=== PATIENT | male | born 1945 | race Caucasian/White ===

== ENCOUNTER → 2017-08-19 09:49 | Outpatient (CLI) | payer MEDICARE, OTHER, SELFPAY ==
[2017-08-19 11:08] LABS: PSA,Total- Diagnostic < 0.01 ng/mL (0.0-4.0)
== END ==
PROVIDERS: Family Provider Family Medicine; PCP Family Medicine; Visit Provider Urology
DX: C61 Malignant neoplasm of prostate (principal)
CPT/HCPCS: 36415; 84153

== ENCOUNTER → 2018-02-23 09:28 | Outpatient (CLI) | payer MEDICARE, OTHER, SELFPAY ==
[2018-02-23 10:21] LABS: PSA,Total- Diagnostic < 0.01 ng/mL (0.0-4.0)
== END ==
PROVIDERS: Family Provider Family Medicine; PCP Family Medicine; Referring Provider Urology; Visit Provider Urology
DX: C61 Malignant neoplasm of prostate (principal)
CPT/HCPCS: 36415; 84153

== ENCOUNTER → 2018-08-27 08:25 | Outpatient (CLI) | payer MEDICARE, OTHER, SELFPAY ==
[2016-09-25 14:37] VITALS: BMI 28.5
[2018-08-27 09:45] LABS: PSA,Total- Diagnostic < 0.01 ng/mL (0.0-4.0)
== END ==
PROVIDERS: Family Provider Family Medicine; PCP Family Medicine; Referring Provider Urology; Visit Provider Urology
DX: C61 Malignant neoplasm of prostate (principal)
CPT/HCPCS: 36415; 84153

== ENCOUNTER 2018-10-29 05:58 | Emergency (ER) | payer MEDICARE, OTHER, SELFPAY ==
[2018-10-29 05:59] VITALS: BP 163/88; PULSE 96; RESP 18; TEMP 36.6; O2SAT 97; BMI 28.5
--- NOTE | 2018-10-29 05:59 | CT_ITS ---
STUDY: CT ABDOMEN AND PELVIS WITHOUT CONTRAST REASON FOR EXAM: Male, 73 years old. Low back and bilateral flank pain. RADIATION DOSAGE (If Supplied By Facility): CTDIvol = ( 11.01 ) mGy, DLP = ( 503.47 ) mGycm TECHNIQUE: Transaxial images were obtained from the dome of the diaphragm to the symphysis pubis without oral contrast, and without intravenous contrast. Sagittal and coronal images were reconstructed. Individualized dose optimization techniques were used for this CT. COMPARISON: CT scan abdomen and pelvis 08/05/2016. FINDINGS: As seen on axial image 15, there is a 3.6 mm noncalcified left lower lobe lung nodule, which is stable in size compared to the 2017 exam. No further evaluation should be necessary. The visualized portions of the heart are within normal limits. There are small liver cysts. There are small calcified gallstones. Normal spleen. Normal pancreas. Normal bilateral adrenal glands. Normal right kidney. Normal left kidney. There is chronic bilateral perinephric fat infiltration, which is slightly more prominent than it was on the 2017 exam.. Finding is nonspecific and might represent active inflammation. There is a small to moderate hiatal hernia. Normal small intestine. Normal colon. The appendix is visualized on axial images 94-101 and it appears normal.. There is diffuse atherosclerotic calcification of the abdominal aorta, without a demonstrated aneurysm. Normal inferior vena cava. There is no demonstrated retroperitoneal lymphadenopathy. Normal urinary bladder. There is evidence for prostatectomy, which is occurred subsequent to the previous exam. There is a small umbilical hernia containing fat, but no bowel. There are multilevel degenerative changes of the visualized lumbar spine. CT/Abdomen/Pelvis without Cont IMPRESSION: Status post prostatectomy. Chronic bilateral perinephric fat infiltration is slightly more prominent than it was on previous exam. Finding is nonspecific but may represent an active infectious or inflammatory process. .No demonstrated urinary calculus or hydronephrosis. No demonstrated perinephric fluid collection. Gallstones. Hiatal hernia. Atherosclerosis. No evidence for appendicitis or diverticulitis. Electronically Signed: Tee Vance MD at 6:44 EDT , Service support ,
--- NOTE | 2018-10-29 06:01 | ED.DCSUM_ITS ---
- ER Visit Summary Date of Service: 10/29/18 Chief Complaint: Bilateral flank pain History of Present Illness: The patient is a 73 M who has bilateral flank pain. Started about 5 hours ago. Describes intermittent pains that goes from his flanks and wraps around to the front part of his abdomen. They are sharp in nature. He has had nausea without vomiting, diarrhea or constipation. He denies any dysuria or hematuria. He states he did lift some heavy water yesterday but is not sure if he injured himself doing this. Denies any pain radiating down his legs. He denies fevers. Physical Examination: Vital signs reviewed. HEENT exam unremarkable. Heart is regular rate and rhythm without murmurs. Lungs are clear to auscultation. Abdomen is soft and nontender. Extremities reveal no edema. Skin exam normal. Neurologic exam normal. Test Results: Laboratory studies show a white blood cell count of 12.8, chloride 109. BUN 22, creatinine 2.45. Last creatinine we have was in 2017 it was 1.1. CAT scan of the abdomen and pelvis shows a prostatectomy with chronic bilateral perinephric fat infiltration more prominent than previous. There are gallstones with no evidence of cholecystitis. Emergency Department Course and Treatment: Patient was hydrated with normal saline. His creatinine has more than doubled since the last time it was tested. He also has this chronic bilateral perinephric fat stranding which is more prominent. I feel due to this he should be admitted for further renal studies. I will discuss with the hospitalist for admission. Treatment Plan: [] Disposition: Admit Impression: Acute kidney injury This note was generated with [employer]ible dictation software. It may contain incorrect words, spelling, and punctuation that were not noted in review of the chart prior to signing ED Disposition - Plan for ED Patient: Referrals: Prashant Bettencourt DO [Primary Care Provider] -
[2018-10-29 06:10] LABS: Mucous, Urine 0 SEEN /hpf (<or=2+); Red Blood Cells-Urine 0 SEEN /hpf (0-5); Squamous Epithelial Cells - UA 0 SEEN /hpf (0-5); White Blood Cells 0 SEEN /hpf (0-5)
[2018-10-29 06:23] LABS: Color, Urine Yellow (Yellow); Glucose, Dipstick Normal (Normal); Ketone-Dipstick Negative (Negative); Leukocyte Esterase-Dipstick Negative /ul (Negative); Nitrite-Dipstick Negative (Negative); Occult Blood-Urine Negative /ul (Negative); Protein-Dipstick Negative (Negative); Specific Gravity, Urine 1.005 (1.002-1.030); Urine Bilirubin Dipstick Negative (Negative); Urine Clarity Clear (Clear); Urine Urobilinogen Normal (Normal); Urine pH 6.5 (5.0 - 8.0)
[2018-10-29 06:25] LABS: Absolute Lymphocyte Count 1.04 X10^3/ul (0.83-4.51); Absolute Neutrophil Count 10.3 X10^3/uL (2.0-7.7); Basophil# 0.02 X10^3/uL; Basophil% 0.2 % (0-1); Eosinophil# 0.18 X10^3/uL; Eosinophils% 1.4 % (0-5); Hematocrit 39.2 % (40-54); Hemoglobin 13.1 g/dl (13.0-16.5); Lymphocyte # 1.04 X10^3/ul (4.0); Lymphocyte % 8.1 % (19-41); Mean Corp Hgb Conc 33.4 g/gl (32-36); Mean Corpuscular Hgb 29.8 pg (27.0-32.0); Mean Corpuscular Volume 89.3 fL (80-94); Mean Platelet Vol. 9.1 fl (6.2-12.0); Monocyte# 1.24 X10^3/uL; Monocyte% 9.7 % (0-10); Neutrophil # 10.27 X10^3/uL (2.7-7.7); Neutrophil % 80.2 % (47-70); Platelet Count 286 K/mm3 (150-450); RBC Distribution Width CV 16.6 % (11.6-14.6); Red Blood Count 4.39 M/mm3 (4.6-6.2); White Blood Count 12.8 K/mm3 (4.4-11.0)
[2018-10-29 06:27] LABS: POSITIVE COUNT NO; POSITIVE DIFFERENTIAL NO; POSITIVE MORPHOLOGY NO
[2018-10-29 06:29] LABS: BUN 22 mg/dL (7-18); Chloride 109 mmol/L (98-107); Creatinine, Serum 2.45 mg/dL (0.70-1.30); EST Glomerular Filtration Rate 28 mL/min (>60); Est Glom Filt Rate - Afr Amer 34 mL/min (>60); Estimated Creatinine Clearance 25.86 ml/min; Glucose 116 mg/dL (74-106); Potassium 4.2 mmol/L (3.5-5.1); Sodium Level 141 mmol/L (136-145)
[2018-10-29 06:30] LABS: Bacteria RARE /hpf (None Seen)
[2018-10-29 06:30] LABS: Anion Gap 9 (5-15)
[2018-10-29] MEDS: 0.9% Normal Saline 1,000 ML 999 ML IV (06:45)
--- NOTE | 2018-10-29 07:53 | ED.DEP ---
ED Disposition - Plan for ED Patient: Instructions: Kidney Problems Referrals: Prashant Bettencourt DO [Primary Care Provider] -
[2018-10-29 08:00] VITALS: BP 157/76; PULSE 80; RESP 16; O2SAT 98
--- NOTE | 2018-10-29 08:18 | CON.PCM_ITS ---
Problem List (1) Back pain Status: Acute Qualifiers: Back pain location: low back pain Chronicity: acute Back pain laterality: bilateral Sciatica presence: without sciatica Qualified Code(s): M54.5 - Low back pain Reason for Consult Date of Consultation: 10/29/18 Reason for Consultation: back pain History of Present Illness: The patient is a 73 year old M who awoke this morning with back pain. Patient stated his low back pain and also had some abdominal pain. Never had pain like this and presented to the emergency room for evaluation. Patient had a creatinine of 2.4, back 2017 it was normal at that time. Patient had a CAT scan that showed some perinephric stranding. The report mentioned that there was some perinephric stranding noted on a CAT scan back in 2017 though was not actually in the body of the reports at that time. Patient denies any dysuria, urinary frequency, difficulty with urination. The hospitalist service was contacted for evaluate patient for possible admission for the abnormal kidney function. [] Past Medical History Medical History: Medical History (Last Updated 10/29/18 @ 08:21 by Jamshid Khan DO) Prostate cancer C61 HTN (hypertension) I10 Allergies No Known Allergies Allergy (Verified 10/29/18 05:58) Home Medications: Ambulatory Orders Medication Instructions Recorded Amlodipine [Norvasc] 10 mg PO DAILY 09/19/16 Aspirin E.C. [Ecotrin] 81 mg PO DAILY@0800 09/19/16 Atorvastatin Calcium [Lipitor] 40 mg PO QHS 09/19/16 Losartan/Hydrochlorothiazide 10/29/18 [Losartan-Hctz 100-12.5 mg Tab] Surgical History: Surgical History (Last Updated 10/29/18 @ 08:21 by Jamshid Khan DO) H/O prostatectomy Z90.79 Lives: Spouse/ Significant Other Smoking Status: Never smoker Tobacco Use: Non-smoker Alcohol: None Drugs: None - *Family History Paternal History Items: - - no prostate CA Review of Systems Constitutional: Denies: Chills, Fever, Weight Change Eyes: Denies: Blurred vision, Eyelid Inflammation HEENT: Denies: Head Aches, Sinus Congestion, Sinus Drainage Cardiovascular: Denies: Chest Pain, Palpitations Respiratory: Denies: Cough, Shortness of breath at rest, Sputum production Gastrointestinal: Denies: Abdominal Pain, Nausea, Vomiting Genitourinary: Denies: Dysuria Musculoskeletal: Denies: Joint Pain, Joint Tenderness Skin: Denies: Rash, Wounds Neurological: Denies: Numbness, Tingling, Focal weakness Psychiatric: Denies: Anxiety, Depression Hematologic/ Lymphatic: Denies: Easy Bruising, Easy Bleeding, Hx of blood clot Comment: A 10 point review of systems were negative except as mentioned in the history of present illness and the other review of systems. - Physical Exam General: Cooperative, No apparent distress HEENT: Atraumatic, Normocephalic Oral: Moist Mucosa, No Gingival or Mucosal Lesions/ Ulcerations Neck: No Nodes, Thyroid Normal Size and Texture Lungs: Clear to auscultation, Normal air movement, No rhonchi, No wheeze, No rales Cardiovascular: Regular rate, Regular Rhythm, Normal S1, Normal S2, No murmurs Abdomen: Bowel Sounds Present, Soft, Non Tender, Non-Distended, No Hepato- splenomegaly, - - No CVA tenderness Extremities: No edema, No Calf Tenderness Skin: No rashes, No breakdown Musculoskeletal: No Tenderness to Palpation of Joints or Extremities, No Muscle Wasting, - - No reproducible lower lumbar paraspinal tenderness Psych/Mental Status: Normal Affect, Appropriate Vital Signs Temp Pulse Resp BP Pulse Ox 36.6 C 80 16 157/76 H 98 10/29/18 05:59 10/29/18 08:00 10/29/18 08:00 10/29/18 08:00 10/29/18 08:00 Oxygen Delivery Method Room Air Weight: 82.7 kg Body Mass Index (BMI) 28.5 Laboratory Tests Past 24 Hrs 10/29/18 10/29/18 10/29/18 06:05 06:10 06:10 WBC 12.8 H RBC 4.39 L Hgb 13.1 Hct 39.2 L MCV 89.3 MCH 29.8 MCHC 33.4 RDW 16.6 H RDW Differential 54.0 H Plt Count 286 MPV 9.1 Immature Gran % (Auto) 0.400 Neut % (Auto) 80.2 H Lymph % (Auto) 8.1 L Owsley % (Auto) 9.7 Eos % (Auto) 1.4 Baso % (Auto) 0.2 Absolute Neuts (auto) 10.3 H Absolute Lymphs (auto) 1.04 Total Counted Not Reportable Sodium 141 Potassium 4.2 Chloride 109 H Carbon Dioxide 23.0 Anion Gap 9 BUN 22 H Creatinine 2.45 H Estim Creat Clear Calc 25.86 Est GFR (MDRD) Af Amer 34 L Est GFR (MDRD) Non-Af 28 L BUN/Creatinine Ratio 9.0 L Glucose 116 H Calcium 9.0 Urine Color Yellow Urine Clarity Clear Urine pH 6.5 Ur Specific Bullock 1.005 Urine Protein Negative Urine Glucose (UA) Normal Urine Ketones Negative Urine Occult Blood Negative Urine Nitrite Negative Urine Bilirubin Negative Urine Urobilinogen Normal Ur Leukocyte Esterase Negative Urine RBC 0 SEEN Urine WBC 0 SEEN Ur Squamous Epith Cells 0 SEEN Urine Bacteria RARE Urine Mucus 0 SEEN Assessment/Plan All Active Problems Back pain (Acute) 1. Chronic kidney disease stage IV * Cannot qualify this is acute kidney injury as there is no recent kidney function from 2017 * I have advised the patient to discontinue the lisinopril/HCTZ * Follow-up with his primary care physician and have a repeat lab work done as outpatient * If creatinine still remains to be elevated patient would require being established with a manager fitness. I did inform the patient and his that there is no urgency for renal replacement therapy at this time * And to get the patient the option to stay in the hospital receive IV fluids and have his lab work checked in the morning, but I stated that there would be observation status and that he would likely be stuck with a higher co-pay for this auscultation. I did inform him that when his medications drinking fluid would certainly be the equivalent of doing that at home. 2. Hypertension * Patient told to continue with his amlodipine but to hold his lisinopril/HCTZ * Advised patient check his blood pressure at home at least once daily and to be at rest for 5 minutes prior to checking his blood pressure 3. Perinephric stranding * Clinically, I do not feel the patient has pyelonephritis as he has no constitutional symptoms other than the back pain is unclear if the back pain is really even attributable to that. Additionally, his urinalysis was completely normal * This may be a chronic process but am not clear what the process would be 4. History of pulmonary hypertension * Noted on an echocardiogram that he had performed in 2017. * Unclear etiology but if not done so previously, consider polysomnogram to evaluate for obstructive sleep apnea Code Visit Office Visits / Consults: [id number] OP Consult L4
== END 2018-10-29 08:01 | disposition home or self-care (01) ==
PROVIDERS: Emergency Provider Emergency Medicine; Family Provider Family Medicine; PCP Family Medicine
DX: N17.9 Acute kidney failure, unspecified (principal); I12.9 Hypertensive chronic kidney disease with stage 1 through stage 4 chronic kidney disease, or unspecified chronic kidney disease; E11.22 Type 2 diabetes mellitus with diabetic chronic kidney disease; N18.4 Chronic kidney disease, stage 4 (severe); E78.00 Pure hypercholesterolemia, unspecified; Z79.899 Other long term (current) drug therapy
CPT/HCPCS: 74176; 80048; 81001; 85025; 96360; 99284; J7030; A4216

== ENCOUNTER → 2019-02-25 | Outpatient (CLI) | payer MEDICARE, OTHER, SELFPAY ==
[2019-02-25 12:03] LABS: PSA,Total- Diagnostic < 0.01 ng/mL (0.0-4.0)
== END | disposition home or self-care (01) ==
PROVIDERS: Referring Provider Urology; Visit Provider Urology
DX: C61 Malignant neoplasm of prostate (principal)
CPT/HCPCS: 36415; 84153

== ENCOUNTER → 2019-08-25 | Outpatient (CLI) | payer MEDICARE, OTHER, SELFPAY ==
[2019-08-25 09:29] LABS: PSA,Total- Diagnostic < 0.01 ng/mL (0.0-4.0)
== END | disposition home or self-care (01) ==
PROVIDERS: Referring Provider Urology; Visit Provider Urology
DX: C61 Malignant neoplasm of prostate (principal); R97.20 Elevated prostate specific antigen [PSA]
CPT/HCPCS: 36415; 84153

== ENCOUNTER → 2020-02-24 08:56 | Outpatient (CLI) | payer MEDICARE, OTHER, SELFPAY ==
[2020-02-24 10:08] LABS: PSA,Total- Diagnostic < 0.01 ng/mL (0.0-4.0)
== END ==
PROVIDERS: PCP Nurse Practitioner Primary Care; Referring Provider Urology; Visit Provider Urology
DX: C61 Malignant neoplasm of prostate (principal)
CPT/HCPCS: 36415; 84153

== ENCOUNTER 2020-06-19 17:45 | Outpatient (RCR) | payer MEDICARE, OTHER, SELFPAY | END 2020-06-19 23:59 | LOC: IMMUN 17:45 | PROVIDERS: Visit Provider Family Medicine | DX: Z23 Encounter for immunization (principal) | CPT/HCPCS: 0011A; 0012A ==

== ENCOUNTER → 2020-08-24 08:52 | Outpatient (CLI) | payer MEDICARE, OTHER, SELFPAY ==
[2020-08-24 10:48] LABS: PSA,Total- Diagnostic < 0.01 ng/mL (0.0-4.0)
== END ==
PROVIDERS: PCP Student in an Organized Health Care Education/Training Program; Referring Provider Urology; Visit Provider Urology
DX: C61 Malignant neoplasm of prostate (principal)
CPT/HCPCS: 36415; 84153

== ENCOUNTER → 2021-09-18 | Outpatient (CLI) | payer MEDICARE, OTHER, SELFPAY ==
[2021-09-18 11:08] LABS: PSA,Total - Annual Screen < 0.01 ng/mL (0.00-4.00)
== END | disposition home or self-care (01) ==
LOC: LAB 08:59
PROVIDERS: PCP Student in an Organized Health Care Education/Training Program; Referring Provider Urology; Visit Provider Urology
DX: Z12.5 Encounter for screening for malignant neoplasm of prostate (principal); C61 Malignant neoplasm of prostate
CPT/HCPCS: 36415; 84153; G0103

== ENCOUNTER → 2022-10-02 | Outpatient (CLI) | payer MEDICARE, OTHER, SELFPAY ==
[2022-10-02 10:17] LABS: PSA,Total- Diagnostic < 0.01 ng/mL (0.0-4.0)
== END | disposition home or self-care (01) ==
LOC: LAB 08:40
PROVIDERS: PCP Student in an Organized Health Care Education/Training Program; Referring Provider Urology; Visit Provider Urology
DX: C61 Malignant neoplasm of prostate (principal)
CPT/HCPCS: 36415; 84153